=== PATIENT | female | born 1985 | race Caucasian/White ===

== ENCOUNTER 2020-06-23 20:33 | Emergency (ER) | payer MEDICAID ==
[2020-06-23 20:51] LABS: ABSOLUTE BASOPHILS # (AUTO) 0.1 10^3/uL (0.0-0.2); ABSOLUTE EOSINOPHILS # (AUTO) 0.3 10^3/uL (0.0-0.6); ABSOLUTE LYMPHOCYTES (AUTO) 2.8 10^3/uL (0.5-4.7); ABSOLUTE MONOCYTES (AUTO) 0.4 10^3/uL (0.1-1.4); ABSOLUTE NEUT (AUTO) 5.7 10^3/uL (1.7-8.2); BASOPHILS % (AUTO) 0.6 % (0-2); HEMATOCRIT 36.9 % (36.0-47.0); LYMPHOCYTES % (AUTO) 30.2 % (13-45); MEAN CORPUSCULAR HEMOGLOBIN 34.5 pg (27.0-33.4); MEAN CORPUSCULAR HGB CONC 35.2 g/dL (32.0-36.0); MEAN CORPUSCULAR VOLUME 98 fl (80-97); MONOCYTES % (AUTO) 4.1 % (3-13); PLATELET COUNT 404 10^3/uL (150-450); RED BLOOD COUNT 3.76 10^6/uL (3.72-5.28); RED CELL DISTRIBUTION WIDTH 12.3 % (11.5-14.0); SEGMENTED NEUTROPHILS % (AUTO) 62.1 % (42-78); TOTAL CELLS COUNTED % (AUTO) 100 %; WHITE BLOOD COUNT 9.2 10^3/uL (4.0-10.5)
--- NOTE | 2020-06-23 20:59 | ER Document Report ---
ED Cardiac - General Chief Complaint: Arrhythmia Stated Complaint: SVT Time Seen by Provider: 06/23/20 20:43 Primary Care Provider: AC ARCE MD [ACTIVE STAFF] - Follow up as needed Mode of Arrival: Medic Information source: Patient Notes: 34-year-old woman presenting to the emergency department with history of supraventricular tachycardia. She states that she was sitting on her couch today when she began having a sudden episode of rapid heartbeat. EMS was called and the patient was found to have a rate of 240. She was given adenosine 6 mg and then adenosine 12mg and a conversion to normal sinus rhythm, sinus tachycardia. She was given a 400 mL bolus of lactated Ringer's. Patient states that she experienced a severe headache and also neck pain during the episode and when she received the medication she had a sudden sharp pain in her chest. She has had a history of intermittent episodes of rapid heartbeat which she had been controlled attributing to anxiety. This is her first time being treated for SVT. She denies any other known medical problems. She does not take any regular medications. - Related Data Allergies/Adverse Reactions: amoxicillin Allergy (Verified 06/23/20 21:00) Penicillins Allergy (Verified 06/23/20 21:00) Past Medical History - Social History Smoking Status: Never Smoker Family History: Reviewed & Not Pertinent Review of Systems - Review of Systems Notes: Constitutional: Negative for fever. HENT: Negative for sore throat. Eyes: Negative for visual changes. Cardiovascular: See HPI Respiratory: Negative for shortness of breath. Gastrointestinal: Negative for abdominal pain, vomiting or diarrhea. Genitourinary: Negative for dysuria. Musculoskeletal: Negative for back pain. Skin: Negative for rash. Neurological: Negative for headaches, weakness or numbness. 10 point ROS negative except as marked above and in HPI. Physical Exam - Vital signs Vitals: Resp Pulse Ox 14 99 06/23/20 20:36 06/23/20 20:36 - Notes Notes: PHYSICAL EXAMINATION: Physical Exam: General: Well-nourished well-developed in no acute distress HEENT: NC/AT, pupils equal round and reactive to light, MM moist,nares clear, oropharynx clear, airway patent Neck: supple, no adenopathy, no masses. Good range of motion Lungs: clear, no wheezing, no rales no rhonchi CVS: Tachycardia rate and rhythm no murmur gallop or rub Abdomen: Soft, active, nontender, no masses, no hepatosplenomegaly Ext: No edema, clubbing or cyanosis. Neuro: Alert and responsive, moving all 4 extremities on command, cranial nerves intact, no focal findings Skin: Intact no open lesions, no rash PSYCH: Normal mood, normal affect. Course - Re-evaluation Re-evalutation: 06/23/20 23:34 Patient with episode of supraventricular tachycardia documented on the monitor strips by EMS. Rate was approximately 240. She received 2 doses of adenosine with conversion to sinus rhythm. She has been in sinus rhythm since she came into the emergency department lab evaluation is essentially negative thyroid tests are normal, chest x-ray was done Home EKG now normal sinus rhythm with heart rate in the low 90s. Patient is presently asymptomatic and I am going to discharge her home with the diagnosis of SVT. Patient has had 6 episodes prior to tonight, this is the first episode that she has been seen in the emergency department for treatment. After discussion with the patient, I am contacting the director of laboratory operations regarding the beginning a beta-willis or calcium channel willis. We will also need some follow-up. 06/23/20 23:45 Dr. Brown, cardiology was contacted, he agrees that a beta-willis metoprolol 25 mg once a day is a reasonable starting point he also notes that it probably will not prevent an episode of SVT but may keep her rate from going so high. He has been given the patient information and will follow up with the patient as an outpatient. - Vital Signs Vital signs: Temp Pulse Resp BP Pulse Ox 98.2 F 114 H 17 117/86 H 100 06/24/20 00:23 06/23/20 20:45 06/24/20 00:01 06/24/20 00:01 06/24/20 00:01 - Laboratory Results Result Diagrams: 06/23/20 20:37 06/23/20 20:37 Laboratory Results Interpreted: 06/23/20 06/23/20 20:37 20:37 MCV 98 H MCH 34.5 H Potassium 3.4 L Chloride 108 H Creatine Kinase 159 H Critical Laboratory Results Reviewed: No Critical Results - Radiology Results Radiology Results Interpreted: 06/23/20 23:44 Chest X-Ray 06/23/20 20:43 IMPRESSION: Findings suggest viral inflammation. Critical Radiology Results Reviewed: No Critical Results - EKG Interpretation by Me Rate: Tachycardia - EKG interpreted by Dr. Licona: Sinus tachycardia, rate 103, CT interval 136 ms QT interval 352 ms, normal axis, no acute ST or T wave abnormalities, no ischemic findings, there is no prior EKG for comparison. Interpretation: Otherwise normal EKG Discharge - Discharge Clinical Impression: Supraventricular tachycardia, Suspected 2019 novel coronavirus infection Condition: Good Disposition: HOME, SELF-CARE Instructions: COVID-19 Guidance for Persons Under Investigation, Paroxysmal Supraventricular Tachycardia ([facility]) Additional Instructions: [facility] episode of SVT which was successfully converted with the medications given by the EMS crew. Your lab work including thyroid test were normal. The radiologist read your chest x-ray was concerned about a possible viral infection. I am doubtful that you have the coronavirus and if you elected to get a test, you will have to self quarantine until you get the results. You were given a prescription for a medication called metoprolol [address] Brown the director of laboratory operations on-call is being given your information and he will follow-up with you as an outpatient. I am also providing you with his information so that you can contact his office if he did. If symptoms are worsening or if you have other concerns you may return to the emergency department for further evaluation and treatment HOME CARE INSTRUCTIONS & INFORMATION: Thank you for choosing us for your medical needs. We hope you're satisfied with the care you received. After you leave, you must properly care for your problem and, at the same time, observe its progress. Any condition can change. Some illnesses can change rapidly over hours or days. If your condition worsens, return to the Emergency Department or see your physician promptly. ABOUT YOUR X-RAYS AND EKG'S: If you had an EKG or X-rays taken, they have been read by the Emergency Physician. The X-rays and EKG's will also be read by a Radiologist or Software Trainer within 24 hours. If discrepancies are noted, you will be notified by telephone. Please be certain the ED has a correct telephone number & address where you can be reached. Also, realize that some fractures or abnormalities do not show up on initial X-rays. If your symptoms continue, see your physician. ABOUT YOUR LABORATORY TEST: If you had laboratory tests, the results have been reviewed by the Emergency Physician. Some test results (for example cultures) may not be available for several days. You will be contacted if any test result shows you need additional treatment. Please be certain the ED has a correct telephone number and address where you can be reached. ABOUT YOUR MEDICATIONS: You will receive instructions on how to take your medicine on the prescription label you receive. Additional information may be provided by the Pharmacy. If you have questions afterwards, call the ED for clarification or further instructions. Some prescribed medications may cause drowsiness. Do not perform tasks such as driving a car or operating machinery without consulting your Pharmacist. If you feel you need a refill of pain medication, your condition will need re-evaluation. Please do not call for a refill of any medication. ABOUT YOUR SIGNATURE: Signature of this document acknowledges to followin. Understanding that you received emergency treatment and that you may be released before al medical problems are known or treated. Please be certain the ED has a correct phone number & address where you can be reached. 2. Acknowledgement that you will arrange for follow-up care as recommended. 3. Authorization for the Emergency Physician to provide information to your follow-up Physician in order to maximize your care. AT ANY TIME, IF YOUR SYMPTOMS CHANGE SIGNIFICANTLY OR WORSEN OR YOU DEVELOP NEW SYMPTOMS, RETURN TO THE EMERGENCY DEPARTMENT IMMEDIATELY FOR RE-EVALUATION. OUR GOAL IS TO PROVIDE EXCELLENT MEDICAL CARE! WE HOPE THAT WE HAVE MET YOUR EXPECTATIONS DURING YOUR EMERGENCY DEPARTMENT VISIT AND THAT YOU FEEL YOU HAVE RECEIVED EXCELLENT CARE! Prescriptions: Metoprolol Succinate [Toprol Xl 25 mg Tab.sr] 25 mg PO DAILY #30 tab.sr.24h Referrals: AC ARCE MD [ACTIVE STAFF] - Follow up as needed
[2020-06-23 21:12] LABS: ALKALINE PHOSPHATASE 61 U/L (38-126); ANION GAP 5 (5-19); ASPARTATE AMINO TRANSFERASE 30 U/L (14-36); BILIRUBIN,DIRECT 0.2 mg/dL (0.0-0.4); BILIRUBIN,TOTAL 0.4 mg/dL (0.2-1.3); BLOOD UREA NITROGEN 14 mg/dL (7-20); CALCIUM 9.3 mg/dL (8.4-10.2); CARBON DIOXIDE 27 mmol/L (22-30); CHLORIDE 108 mmol/L (98-107); CREATINE KINASE 159 U/L (30-135); GLUCOSE 105 mg/dL (75-110); POTASSIUM 3.4 mmol/L (3.6-5.0); TOTAL PROTEIN 7.3 g/dL (6.3-8.2)
[2020-06-23 21:23] LABS: CREATINE KINASE MB 2.1 ng/mL (<4.55); TROPONIN I 0.02 ng/mL
--- NOTE | 2020-06-23 21:54 | RADIOLOGY REPORT (SQ) ---
EXAM DESCRIPTION: XR CHEST 1 VIEW COMPLETED DATE/TME: 06/23/2020 21:12 CLINICAL HISTORY: 34 years, Female, shortness of breath EXAM DESCRIPTION: CHEST SINGLE VIEW CLINICAL HISTORY: shortness of breath COMPARISON: None. FINDINGS: Single view of the chest is submitted. Cardiac silhouette is normal. There are bilateral consolidations. These are poorly defined. There is no significant pulmonary vascular engorgement. IMPRESSION: Findings suggest viral inflammation.
[2020-06-24 00:23] VITALS: BP 117/86
--- NOTE | 2020-06-24 09:24 | EKG REPORT ---
SEVERITY:- OTHERWISE NORMAL ECG - SINUS TACHYCARDIA : Confirmed by: Chandana Dewey MD 24-Jun-2020 09:24:22
== END 2020-06-24 00:25 | disposition home or self-care (01) ==
LOC: ER 20:33
DX: I47.1 Supraventricular tachycardia (principal); Z20.828 Contact with and (suspected) exposure to other viral communicable diseases; Z88.0 Allergy status to penicillin
CPT/HCPCS: 93005; 99285; 36415; 82553; 82550; 84443; 85025; 87635; 80053; 84484; 71045; 93010; C9803